=== PATIENT | female | born 1985 | race Caucasian/White ===

== ENCOUNTER 2023-03-12 20:10 | Emergency (ER) | payer OTHER ==
[2023-03-12] MEDS ORDERED: Lidocaine 1% PF 5 ML VIAL ONE (20:45)
[2023-03-12] MEDS ORDERED: Bacitracin 1 PK ONE (20:48)
[2023-03-12] MEDS ORDERED: Ibuprofen 600 MG TAB ONE (20:48)
[2023-03-12] MEDS ORDERED: Boostrix 0.5 ML (Tdap) VIAL (>/=7 yrs of age) ONE (21:24)
== END 2023-03-12 21:47 | disposition home or self-care (01) ==
LOC: MADERS 20:10
DX: S61.211A Laceration without foreign body of left index finger without damage to nail, initial encounter (principal); Z23 Encounter for immunization; G43.909 Migraine, unspecified, not intractable, without status migrainosus; Z79.899 Other long term (current) drug therapy; W26.0XXA Contact with knife, initial encounter
CPT/HCPCS: 12002; 90471; 90715